=== PATIENT | male | born 1985 | race Caucasian/White ===

== ENCOUNTER 2016-08-03 20:21 | Emergency (ER) | payer OTHER, SELFPAY ==
[~2016-08-03] VITALS: Ht 177.8 cm; Wt 62.1 kg
[2016-08-03 20:22] VITALS: BP 143/75
== END 2016-08-03 21:58 | disposition left against medical advice (07) ==
LOC: M ED 21:55
DX: N50.819 Testicular pain, unspecified (principal); Z53.21 Procedure and treatment not carried out due to patient leaving prior to being seen by health care provider

== ENCOUNTER 2016-08-04 19:31 | Emergency (ER) | payer SELFPAY ==
[~2016-08-04] VITALS: Ht 175.3 cm; Wt 62.1 kg
[2016-08-04] MEDS ORDERED: NORCO, ANEXSIA 5/325MG TABLET (HYDROcodone/ACETAMINOPHEN) PO ONE (22:00)
--- NOTE | 2016-08-04 22:20 | REPUSA ---
CLINICAL HISTORY: Testicular pain, swelling. TECHNIQUE: Realtime sonographic images were obtained in multiple projections. COMMENTS: Compared to 04/22/16 study. The right testis measures 4.6 (CC) x 2.3 (AP) x 2.9 (TRV). The left testis measures 4.6 (CC) x 2.1 ( AP) x 2.9 (TRV). The head size of the right epididymis measures 6.8 mm and the head size of the left epididymis measur es 5.1 mm with a cyst, 1.6 mm. The right RI measures 0.56, PSV 5.9, and EDV of 2.6. The left RI measures 0.46, PSV 3.9, and EDV 2.1. IMPRESSION: Tiny right epididymal head cyst. Bilateral testicles normal flow. Bilateral testicles microlithiasis, no change. Thank you for your kind referral of this patient. We appreciate the opportunity to participate in th is patient's care.
[2016-08-04 23:05] VITALS: BP 122/71
== END 2016-08-04 23:12 | disposition home or self-care (01) ==
LOC: M ED 20:38
DX: N50.3 Cyst of epididymis (principal); F17.200 Nicotine dependence, unspecified, uncomplicated; Z88.2 Allergy status to sulfonamides

== ENCOUNTER → 2016-08-12 | Outpatient (CLI) | payer SELFPAY ==
--- NOTE | 2016-08-12 16:34 | REP ---
Clinical: Testicular and groin pain. Technique: Axial contrast enhanced images from the lung bases to the pubic symphysis using 100 ml Isovue 370 intravenous contrast material with precontrast images of the abdomen as well as coronal and sagittal re-formations. Comparison: 10/09/2013. Findings: Lung bases clear. Visualized heart and pericardium normal. Liver, spleen, pancreas, gallbladder, bilateral adrenal glands and kidneys are normal. The enteric system is without obstruction or acute inflammatory process. Evidence for prior appendectomy. Pelvis demonstrates normal bladder and age appropriate prostate/seminal vesicles. No ascites. No free air. No adenopathy. Vasculature is normal. Musculoskeletal structures are intact. Impression: Normal contrast enhanced CT of the abdomen and pelvis. Signed by Elia Roe MD 08/12/2016 04:26 P
== END ==
LOC: M RAD 15:47
PROVIDERS: ATTEND Nurse Practitioner Women's Health
DX: R10.30 Lower abdominal pain, unspecified (principal); N50.819 Testicular pain, unspecified

== ENCOUNTER 2016-10-03 15:00 | Emergency (ER) | payer OTHER, SELFPAY ==
[~2016-10-03] VITALS: Ht 175.3 cm; Wt 59.0 kg
[2016-10-03] MEDS ORDERED: NAPR500T2 PO ×2 (15:09→17:23)
[2016-10-03 15:56] LABS: BASO % 0.5 % (0.0-1.0); EOS # 0.1 K/mm3 (0.0-0.50); EOS % 1.5 % (0.0-3.0); LARGE UNSTAINED CELL # 0.1 K/mm3 (0.0-0.4); LYMPH # 1.7 K/mm3 (1.5-6.5); LYMPH % 28.8 % (24.0-44.0); MEAN CORPUSCULAR HEMOGLOBIN 32.4 pg (27.0-33.0); MEAN CORPUSCULAR HGB CONC 34.1 g/dl (32.0-36.5); MEAN CORPUSCULAR VOLUME 94.9 fl (80.0-96.0); MONO # 0.2 K/mm3 (0.0-0.8); MONO % 4.2 % (0.0-5.0); NEUTROPHILS # 3.7 K/mm3 (1.8-7.7); PLATELET COUNT, AUTOMATED 226 k/mm3 (150-450); RED CELL DISTRIBUTION WIDTH 11.9 % (11.5-14.5); WHITE BLOOD COUNT 5.8 K/mm3 (4.0-10.0)
[2016-10-03 16:25] LABS: ALBUMIN 4.5 GM/DL (3.2-5.2); ALBUMIN/GLOBULIN RATIO 1.67 (1.00-1.93); ALKALINE PHOSPHATASE 75 U/L (45-117); ALT/SGPT 23 U/L (12-78); ANION GAP 8 MEQ/L (8-16); AST/SGOT 14 U/L (15-37); BILIRUBIN,TOTAL 0.9 MG/DL (0.2-1.0); BLOOD UREA NITROGEN 15 MG/DL (7-18); CALCIUM LEVEL 8.9 MG/DL (8.5-10.1); CARBON DIOXIDE LEVEL 29 MEQ/L (21-32); CHLORIDE LEVEL 104 MEQ/L (98-107); CREATININE FOR GFR 0.87 MG/DL (0.70-1.30); GLOMERULAR FILTRATION RATE > 60.0 (>60); GLUCOSE, FASTING 94 MG/DL (70-105); POTASSIUM SERUM 4.9 MEQ/L (3.5-5.1); SODIUM LEVEL 141 MEQ/L (136-145); TOTAL PROTEIN 7.2 GM/DL (6.4-8.2)
[2016-10-03] MEDS ORDERED: KETOROLAC 60 MG/2 ML VIAL (J1885) IM ONE (17:00)
[2016-10-03] MEDS ORDERED: TYLE325T5 PO (17:23)
[2016-10-03] MEDS ORDERED: DOXY100C37 PO (17:25)
[2016-10-03 17:30] VITALS: BP 135/65
[2016-10-03] MEDS ORDERED: cefTRIAXone SOD 500 MG VIAL (J0696) IM ONE (17:30)
[2016-10-03] MEDS ORDERED: AZITHROMYCIN SUSP 200MG/5ML 30ML BOTTLE (FOR INPATIENT ORDERS) PO ONE (17:30)
[2016-10-03] MEDS ORDERED: AZITHROMYCIN 250 MG TAB PO ONE (17:30)
--- NOTE | 2016-10-04 07:03 | REP ---
SCROTAL ULTRASOUND: Real-time sonographic evaluation of the scrotum and contents performed. Testicles are normal in size and echotexture, right testicle somewhat smaller than the left. Right testicle measures 3.3 x 2.1 x 2.7 cm and left testicle 4.2 x 2.2 x 2.8 cm. A few tiny calcifications are seen in the testicles. There is no testicular mass or torsion, with blood flow seen in each testicle with duplex Doppler evaluation, resistive index right testicle 0.50 and left testicle 0.56. Tiny cyst is seen in the head of the right epididymis measuring 2 mm in diameter. Prominent venous structures on the left may indicate a small varicocele. IMPRESSION: No testicular mass or torsion. Signed by Earle Cardoso MD 10/04/2016 07:50 P
== END 2016-10-03 18:01 | disposition home or self-care (01) ==
LOC: M ED 15:31
DX: N45.1 Epididymitis (principal); Z88.1 Allergy status to other antibiotic agents; Z88.2 Allergy status to sulfonamides; F17.210 Nicotine dependence, cigarettes, uncomplicated
CPT/HCPCS: 36415; 76870; 80053; 85025; 86780; 87491; 87591; 93976; 96372; 99282; J0696; J1885

== ENCOUNTER → 2016-10-28 | Outpatient (CLI) | payer OTHER ==
[~2016-10-28] MED LIST: DOXY100C37 PO; IBUP-1114 PO; NAPR500T2 PO; TYLE325T5 PO
[2016-10-28 11:48] LABS: MEAN CORPUSCULAR HEMOGLOBIN 31.5 pg (27.0-33.0); MEAN CORPUSCULAR HGB CONC 34.3 g/dl (32.0-36.5); MEAN CORPUSCULAR VOLUME 91.9 fl (80.0-96.0); RED CELL DISTRIBUTION WIDTH 12.1 % (11.5-14.5); WHITE BLOOD COUNT 3.7 K/mm3 (4.0-10.0)
[2016-10-28 11:58] LABS: INR 1.09
[2016-10-28 12:28] LABS: ANION GAP 4 MEQ/L (8-16); BLOOD UREA NITROGEN 11 MG/DL (7-18); CALCIUM LEVEL 9.3 MG/DL (8.5-10.1); CARBON DIOXIDE LEVEL 31 MEQ/L (21-32); CHLORIDE LEVEL 105 MEQ/L (98-107); CREATININE FOR GFR 0.84 MG/DL (0.70-1.30); GLOMERULAR FILTRATION RATE > 60.0 (>60); GLUCOSE, FASTING 94 MG/DL (70-105); POTASSIUM SERUM 4.6 MEQ/L (3.5-5.1); SODIUM LEVEL 140 MEQ/L (136-145)
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
== END ==
LOC: M LAB 10:56
PROVIDERS: ATTEND Urology
DX: Z01.818 Encounter for other preprocedural examination (principal); N50.811 Right testicular pain

== ENCOUNTER → 2016-11-10 | Day surgery (SDC) | payer OTHER ==
[~2016-11-10] VITALS: Ht 172.7 cm; Wt 60.3 kg
[~2016-11-10] MED LIST changes: +ACETAMINOPHEN TAB 650MG DOSE (2X325MG) PO SCH; +BACITRACIN OINT 30GM As Ordered ONE; +BACITRACIN OINT 30GM TOP SCH; +BUPIVACAINE HCL 0.25% 30 ML VIAL As Ordered ONE; +CIPR500T3 PO; +CIPROFLOXACIN 500 MG TAB PO SCH; +LIDOCAINE 2% INJ 100 MG/5 ML SDV (FOR ANES.) As Ordered ONE; +LR 1,000 ML IV ONE; +LR 1,000 ML IV SCH; +METOCLOPRAMIDE INJ 10MG/2ML VIAL (J2765) IV PRN; +MIDAZOLAM INJ 2 MG/2 ML VIAL (J2250) As Ordered ONE; +ONDANSETRON 4MG/2ML VIAL (J2405) IV PRN; +PERCOCET 5MG/325MG TAB As Ordered ONE; +PROPOFOL 200 MG/20 ML VIAL As Ordered ONE; +TYLE650T35 PO; +fentaNYL 100 MCG/2 ML INJECTION (J3010) As Ordered ONE
[2016-11-10] MEDS: fentaNYL 100 MCG/2 ML INJECTION (J3010) IV PRN ×4 (12:59→13:14)
[2016-11-10] MEDS: PERCOCET 5MG/325MG TAB PO PRN ×2 (13:34→16:16)
[2016-11-10 17:45] VITALS: BP 132/82
--- NOTE | 2016-11-12 06:18 | RO ---
DATE OF PROCEDURE: 11/10/2016 PREOPERATIVE DIAGNOSIS: Condyloma acuminatum of the base of the penile shaft. POSTOPERATIVE DIAGNOSIS: Condyloma acuminatum of the base of the penile shaft. FINDINGS: 5 cm condyloma acuminatum of the penile shaft and the genitalia multiple. PROCEDURE: CO2 laser ablation condyloma of the genitalia. SURGEON: Dr. Arnoldo Morales. CONCRETE FENCE BUILDER: None. ANESTHESIA: General. COMPLICATIONS: None. ESTIMATED BLOOD LOSS: N/A. HISTORY OF PRESENT ILLNESS: This is a 31-year-old male patient with multiple condyloma acuminatum in the pubic area and also in the base of the penis. For this reason, he has consented for CO2 laser ablation of condylomas of the genitalia. PROCEDURE DESCRIPTION: With patient under general anesthesia in supine position, after prepping and draping the area of concern which included the entire genitalia, we started by doing a biopsy of one of the condylomas and sent it for permanent pathology analysis. With electro Bovie cautery, we took it out from the pedicle. We then proceeded to do a CO2 laser ablation a power of 5 and then a power of 10 of all the condylomas in the suprapubic area and also in the base of the penis. We then proceeded to apply bacitracin cream and floss and a mesh panty to hold the gauze. PLAN: The patient will go home with antibiotic and pain medication. Followup at [facility] in about 2 weeks. There were no complications during surgery.
== END | disposition home or self-care (01) ==
LOC: M SDC 09:39
PROVIDERS: ATTEND Urology
DX: A63.0 Anogenital (venereal) warts (principal); N50.811 Right testicular pain; M54.2 Cervicalgia; M54.6 Pain in thoracic spine; M54.5 Low back pain; G89.29 Other chronic pain; M25.511 Pain in right shoulder; F17.210 Nicotine dependence, cigarettes, uncomplicated; Z88.2 Allergy status to sulfonamides

== ENCOUNTER 2017-01-17 16:53 | Emergency (ER) | payer MEDICAID, OTHER, SELFPAY ==
[~2017-01-17] VITALS: Ht 172.7 cm; Wt 57.5 kg
[~2017-01-17 16:53] MED LIST changes: -ACETAMINOPHEN TAB 650MG DOSE (2X325MG) PO SCH; -BACITRACIN OINT 30GM As Ordered ONE; -BACITRACIN OINT 30GM TOP SCH; -BUPIVACAINE HCL 0.25% 30 ML VIAL As Ordered ONE; -CIPROFLOXACIN 500 MG TAB PO SCH; -LIDOCAINE 2% INJ 100 MG/5 ML SDV (FOR ANES.) As Ordered ONE; -LR 1,000 ML IV ONE; -LR 1,000 ML IV SCH; -METOCLOPRAMIDE INJ 10MG/2ML VIAL (J2765) IV PRN; -MIDAZOLAM INJ 2 MG/2 ML VIAL (J2250) As Ordered ONE; -NAPR500T2 PO; +NAPR500T3 PO; -ONDANSETRON 4MG/2ML VIAL (J2405) IV PRN; -PERCOCET 5MG/325MG TAB As Ordered ONE; -PROPOFOL 200 MG/20 ML VIAL As Ordered ONE; -fentaNYL 100 MCG/2 ML INJECTION (J3010) As Ordered ONE
[2017-01-17] MEDS ORDERED: KETOROLAC 60 MG/2 ML VIAL (J1885) IM ONE (18:30)
[2017-01-17] MEDS ORDERED: NAPR500T PO (19:37)
[2017-01-17] MEDS ORDERED: CYCL10TA PO (19:37)
[2017-01-17 19:41] VITALS: BP 107/63
--- NOTE | 2017-01-18 09:20 | REP ---
LUMBAR SPINE, FIVE VIEWS: HISTORY: Trauma. COMPARISON: 03/08/2016. There is no acute fracture. The L4-5 and L5-S1 intervertebral discs are decreased in height consistent with disc degeneration. The facet joints are normal in appearance. There is loss of the normal lordotic curve. IMPRESSION: Degenerative change as described above. Signed by Javi French MD 01/18/2017 09:29 A
--- NOTE | 2017-01-18 09:23 | REP ---
RIGHT HIP, TWO VIEWS: HISTORY: Pain. There is no acute fracture or dislocation. The joint space is normal in appearance. IMPRESSION: There is no acute fracture or dislocation. Signed by Javi French MD 01/18/2017 09:29 A
== END 2017-01-17 19:50 | disposition home or self-care (01) ==
LOC: M ED 16:53
DX: S30.0XXA Contusion of lower back and pelvis, initial encounter (principal); W01.0XXA Fall on same level from slipping, tripping and stumbling without subsequent striking against object, initial encounter; Y92.89 Other specified places as the place of occurrence of the external cause; Y93.89 Activity, other specified; Y99.8 Other external cause status; Z88.1 Allergy status to other antibiotic agents; Z88.2 Allergy status to sulfonamides; F17.210 Nicotine dependence, cigarettes, uncomplicated
CPT/HCPCS: 72110; 73502; 96372; 99282; J1885; J3360

== ENCOUNTER → 2017-06-01 | Outpatient (REF) | payer OTHER ==
[2017-06-01 19:27] LABS: APPEARANCE, URINE CLEAR (CLEAR); BACTERIA, URINE AUTO NEGATIVE (NEGATIVE); BILIRUBIN, URINE AUTO NEGATIVE (NEGATIVE); BLOOD, URINE BLOOD NEGATIVE (NEGATIVE); COLOR, URINE YELLOW (YELLOW); GLUCOSE, URINE (UA) AUTO NEGATIVE (NEGATIVE); KETONE, URINE AUTO NEGATIVE (NEGATIVE); LEUKOCYTE ESTERASE, URINE AUTO NEGATIVE (NEGATIVE); NITRITE, URINE AUTO NEGATIVE (NEGATIVE); PROTEIN, URINE AUTO NEGATIVE (NEGATIVE); RBC, URINE AUTO 0 /HPF (0-3); SQUAMOUS EPITHELIAL CELL UR AU 0 /HPF (0-6); UROBILINOGEN, URINE AUTO 0.2 mg/dL (0.0-2.0); WBC, URINE AUTO 0 /HPF (0-3)
== END ==
LOC: M SMT 17:46
DX: N50.811 Right testicular pain (principal)

== ENCOUNTER 2017-10-04 08:52 | Emergency (ER) | payer OTHER ==
[2017-10-04] MEDS: AUGMENTIN 875 MG TAB PO (09:50)
== END 2017-10-04 09:53 | disposition home or self-care (01) ==
LOC: M ED 08:52
DX: S81.831A Puncture wound without foreign body, right lower leg, initial encounter (principal); W54.0XXA Bitten by dog, initial encounter; Y92.9 Unspecified place or not applicable; Y93.9 Activity, unspecified; Y99.9 Unspecified external cause status; F17.200 Nicotine dependence, unspecified, uncomplicated; Z88.2 Allergy status to sulfonamides
CPT/HCPCS: 99283

== ENCOUNTER 2017-11-20 23:24 | Emergency (ER) | payer OTHER | END 2017-11-21 01:41 | disposition left against medical advice (07) | LOC: M ED 23:24 | DX: R05 Cough (principal); Z88.2 Allergy status to sulfonamides; Z53.21 Procedure and treatment not carried out due to patient leaving prior to being seen by health care provider ==

== ENCOUNTER → 2017-11-24 | Outpatient (CLI) | payer OTHER ==
[2017-11-24 13:00] LABS: BASO % 0.7 % (0.0-1.0); EOS # 0.1 10^3/uL (0.0-0.50); EOS % 1.9 % (0.0-3.0); HEMATOCRIT 43.2 % (42.0-52.0); IMMATURE GRANULOCYTE % 0.4 % (0-3.0); LYMPH # 1.8 10^3/uL (1.5-4.5); LYMPH % 33.9 % (24.0-44.0); MEAN CORPUSCULAR HEMOGLOBIN 31.4 pg (27.0-33.0); MEAN CORPUSCULAR HGB CONC 34.7 g/dl (32.0-36.5); MEAN CORPUSCULAR VOLUME 90.6 fl (80.0-96.0); MONO # 0.4 10^3/uL (0.0-0.8); MONO % 7.9 % (0.0-5.0); NEUTROPHILS % 55.2 % (36.0-66.0); PLATELET COUNT, AUTOMATED 282 10^3/uL (150-450); RED BLOOD COUNT 4.77 10^6/uL (4.30-6.10); RED CELL DISTRIBUTION WIDTH 11.8 % (11.5-14.5); WHITE BLOOD COUNT 5.3 10^3/uL (4.0-10.0)
[2017-11-24 14:04] LABS: HEPATITIS C VIRUS ABY INDEX 0.1 INDEX (<0.8); HIV 1&2 SCREEN CENTAUR NEGATIVE (NEGATIVE)
[2017-11-24 16:43] LABS: ALBUMIN 4.1 GM/DL (3.2-5.2); ALBUMIN/GLOBULIN RATIO 1.41 (1.00-1.93); ALKALINE PHOSPHATASE 75 U/L (45-117); ALT/SGPT 22 U/L (12-78); ANION GAP 8 MEQ/L (8-16); AST/SGOT 15 U/L (7-37); BILIRUBIN,TOTAL 0.9 MG/DL (0.2-1.0); BLOOD UREA NITROGEN 17 MG/DL (7-18); CALCIUM LEVEL 8.9 MG/DL (8.5-10.1); CARBON DIOXIDE LEVEL 28 MEQ/L (21-32); CHLORIDE LEVEL 106 MEQ/L (98-107); CREATININE FOR GFR 0.81 MG/DL (0.70-1.30); GLOMERULAR FILTRATION RATE > 60.0 (>60); GLUCOSE, FASTING 103 MG/DL (70-100); POTASSIUM SERUM 4.5 MEQ/L (3.5-5.1); SODIUM LEVEL 142 MEQ/L (136-145)
[2017-11-26 14:18] LABS: QUANTIFERON GOLD TB Negative (Negative); TB Test (QFT) Antigen 0.09 IU/mL (.); TB Test (QFT) Antigen Minus Ni 0.01 IU/mL (.); TB Test (QFT) Mitogen 8.52 IU/mL (.); TB Test (QFT) Nil 0.08 IU/mL (.)
== END ==
LOC: M LAB 12:14
DX: R06.02 Shortness of breath (principal); R05 Cough
CPT/HCPCS: 71046

== ENCOUNTER 2018-12-29 00:27 | Emergency (ER) | payer OTHER ==
[~2018-12-29] VITALS: Ht 175.3 cm; Wt 59.1 kg
[~2018-12-29 00:27] MED LIST changes: +AUGM875T28 PO; +CYCL10TA PO; +NAPR-837 PO; +NAPR-885 PO; -NAPR500T3 PO; +ROBI1LIQ PO
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
[2018-12-29] MEDS ORDERED: NS 1,000 ML IV ONE (01:00)
[2018-12-29] MEDS ORDERED: METOCLOPRAMIDE INJ 10MG/2ML VIAL (J2765) IV ONE (01:00)
[2018-12-29 01:21] LABS: BASO # 0.1 10^3/uL (0.0-0.2); BASO % 0.7 % (0.0-1.0); EOS # 0.2 10^3/uL (0.0-0.50); EOS % 2.7 % (0.0-3.0); HEMATOCRIT 42.4 % (42.0-52.0); HEMOGLOBIN 14.5 g/dl (13.5-17.5); LYMPH # 2.9 10^3/uL (1.5-4.5); LYMPH % 40.7 % (24.0-44.0); MEAN CORPUSCULAR HEMOGLOBIN 31.7 pg (27.0-33.0); MEAN CORPUSCULAR HGB CONC 34.2 g/dl (32.0-36.5); MEAN CORPUSCULAR VOLUME 92.6 fl (80.0-96.0); MONO # 0.5 10^3/uL (0.0-0.8); MONO % 6.8 % (0.0-5.0); NEUTROPHILS # 3.5 10^3/uL (1.8-7.7); NEUTROPHILS % 48.8 % (36.0-66.0); PLATELET COUNT, AUTOMATED 233 10^3/uL (150-450); RED BLOOD COUNT 4.58 10^6/uL (4.30-6.10); WHITE BLOOD COUNT 7.1 10^3/uL (4.0-10.0)
[2018-12-29 01:58] LABS: BLOOD UREA NITROGEN 15 MG/DL (7-18); CALCIUM LEVEL 9.4 MG/DL (8.5-10.1); CARBON DIOXIDE LEVEL 29 MEQ/L (21-32); CHLORIDE LEVEL 109 MEQ/L (98-107); GLOMERULAR FILTRATION RATE > 60.0 (>60); GLUCOSE, FASTING 103 MG/DL (70-100); POTASSIUM SERUM 4.1 MEQ/L (3.5-5.1); SODIUM LEVEL 142 MEQ/L (136-145)
[2018-12-29 03:06] VITALS: BP 118/75
== END 2018-12-29 02:56 | disposition home or self-care (01) ==
LOC: M ED 00:27
DX: S09.90XA Unspecified injury of head, initial encounter (principal); W20.8XXA Other cause of strike by thrown, projected or falling object, initial encounter; Y92.89 Other specified places as the place of occurrence of the external cause; Y99.0 Civilian activity done for income or pay; Y93.H9 Activity, other involving exterior property and land maintenance, building and construction; R11.0 Nausea; F17.200 Nicotine dependence, unspecified, uncomplicated; Z88.2 Allergy status to sulfonamides
CPT/HCPCS: 70450; 72125; 80048; 85025; 96374; 99284; J2765

== ENCOUNTER 2019-03-27 12:36 | Day surgery (SDC) | payer OTHER ==
[~2019-03-27] VITALS: Ht 172.7 cm; Wt 55.2 kg
[~2019-03-27 12:36] MED LIST changes: +ACET-840 PO; +IBUP1TAB6 PO; +LR 1,000 ML IV ONE; +ceFAZolin SOD 2 GM in IV 1 EA IV ONE
[2019-03-27] MEDS ORDERED: fentaNYL 250 MCG/5 ML INJECTION (J3010) As Ordered ONE (13:26)
[2019-03-27] MEDS ORDERED: MIDAZOLAM INJ 2 MG/2 ML VIAL (J2250) As Ordered ONE (13:26)
[2019-03-27] MEDS ORDERED: ONDANSETRON 4MG/2ML VIAL (J2405) As Ordered ONE (13:27)
[2019-03-27] MEDS ORDERED: PROPOFOL 200 MG/20 ML VIAL As Ordered ONE (13:27)
[2019-03-27] MEDS ORDERED: LIDOCAINE 2% INJ 100 MG/5 ML SDV (FOR ANES.) As Ordered ONE (13:27)
[2019-03-27] MEDS ORDERED: dexameTHASONE 4 MG/ML 1ML VIAL (J1100) As Ordered ONE (13:27)
[2019-03-27] MEDS ORDERED: ROCURONIUM BROMIDE 50 MG/5 ML VIAL As Ordered ONE (13:28)
[2019-03-27] MEDS ORDERED: BUPIVACAINE/EPIN 0.25% 30 ML VIAL As Ordered ONE (13:55)
[2019-03-27] MEDS ORDERED: LACRILUBE (AKWA TEARS) OPHTH OINT 3.5 GM As Ordered ONE (14:10)
[2019-03-27] MEDS ORDERED: KETOROLAC 60 MG/2 ML VIAL (J1885) As Ordered ONE (14:43)
--- NOTE | 2019-03-27 15:09 | RO ---
DATE OF PROCEDURE: 03/27/2019 PREOPERATIVE DIAGNOSIS: Right inguinal hernia. POSTOPERATIVE DIAGNOSIS: Right inguinal hernia. PROCEDURE: Robotic repair of right inguinal hernia. SURGEON: Dr. Earle Sam ENVELOPE PRESS OPERATOR: Cora Webster NP ANESTHESIA: General. ESTIMATED BLOOD LOSS: 5 mL. COMPLICATIONS: None. INDICATIONS FOR PROCEDURE: The patient 33-year-old male who presents right inguinal pain and found to have a right inguinal hernia. Recommendation was to proceed with robotic repair of the right inguinal hernia. Risks and benefits of the procedure not limited but including bleeding, infection, hernia formation, hernia recurrence, damage to surrounding structures, need for further surgery were discussed in detail with the patient and informed consent was obtained. The procedure was planned. DESCRIPTION OF PROCEDURE: The patient brought back to operating room 7. After sufficient sedation, the abdomen was sterilely prepped and draped. Next, time-out was done to confirm proper patient and proper procedure. Following that, an 8 mm incision was made in the left lower quadrant, Veress needle was inserted and the abdomen was insufflated to 50 mmHg. The Veress needle was removed and 8 mm robotic port was used to gain access to the abdomen. Once the abdomen was entered, another 8 mm port was placed in the mid abdomen superior to umbilicus and another 8 mm port in the right midabdomen. Next, the robot was connected to the ports from the console to the groin was identified. The peritoneum overlying the right inguinal canal was incised with a curved incision. The preperitoneal space was dissected free posteriorly and then medially and laterally. Once the cord structures were completely dissected free from the hernia sac, I reduced them to make sure there was no other cord lipoma. There was very small lipoma identified that was gently reduced but no other signs of anything causing obstruction or pain. The Bard 3-D Max light medium mesh was then placed into the preperitoneal space, sutured to the pubic symphysis using a 2-0 Vicryl suture. The mesh was laid flat inside the pocket. The peritoneum was then closed over top of the mesh using 2-0 V-Loc suture. Once this was completed, the abdomen was desufflated. Skin incisions closed 4-0 Vicryl subcuticular sutures. The abdomen was cleaned and dried. Steri-Strips, 4x4 and tape were applied, thus ending procedure.
[2019-03-27] MEDS ORDERED: LR 1,000 ML IV SCH (15:30)
[2019-03-27] MEDS: fentaNYL 100 MCG/2 ML INJECTION (J3010) IV PRN ×4 (15:30→15:54)
[2019-03-27] MEDS ORDERED: NORCO, ANEXSIA 5/325MG TABLET (HYDROcodone/ACETAMINOPHEN) PO PRN (15:30)
[2019-03-27] MEDS ORDERED: ONDANSETRON 4MG/2ML VIAL (J2405) IV PRN (15:30)
[2019-03-27] MEDS: PERCOCET 5MG/325MG TAB PO PRN ×2 (15:56→17:05)
[2019-03-27] MEDS ORDERED: PERCOCET 5MG/325MG TAB As Ordered ONE (16:59)
[2019-03-27 18:00] VITALS: BP 126/68
== END 2019-03-27 18:05 | disposition home or self-care (01) ==
LOC: M SDC 12:36
PROVIDERS: ATTEND Surgery
DX: K40.90 Unilateral inguinal hernia, without obstruction or gangrene, not specified as recurrent (principal); F41.9 Anxiety disorder, unspecified; F17.210 Nicotine dependence, cigarettes, uncomplicated; Z88.2 Allergy status to sulfonamides
CPT/HCPCS: 49650; C1781; J0690; J1100; J1885; J2250; J2405; J3010

== ENCOUNTER → 2019-03-31 | Outpatient (CLI) | payer OTHER ==
[~2019-03-31] MED LIST changes: -LR 1,000 ML IV ONE; -ceFAZolin SOD 2 GM in IV 1 EA IV ONE
--- NOTE | 2019-03-31 12:13 | REP ---
SOFT-TISSUE INGUINAL ULTRASOUND: HISTORY: Right lower quadrant pain. Status post right inguinal hernia repair with mesh placement March 27, 2019. FINDINGS: Right inguinal soft tissue sonography visualizes the herniorrhaphy mesh. This is at the internal inguinal ring. There is no evidence of recurrent hernia, abnormal fluid collection, or mass. The left inguinal canal is scanned for comparison purposes and is unremarkable. IMPRESSION: No hernia, cyst or mass lesion seen. Electronically Signed by Chang Rice MD 03/31/2019 01:54 P
== END ==
LOC: M RAD 11:17
PROVIDERS: ATTEND Nurse Practitioner
DX: R10.32 Left lower quadrant pain (principal); K40.90 Unilateral inguinal hernia, without obstruction or gangrene, not specified as recurrent

== ENCOUNTER 2019-11-01 17:51 | Emergency (ER) | payer OTHER ==
[~2019-11-01] VITALS: Ht 172.7 cm; Wt 57.7 kg
[~2019-11-01 17:51] MED LIST changes: +CYCL-707 PO; -CYCL10TA PO
[2019-11-01] MEDS ORDERED: NS 1,000 ML IV ONE (18:15)
[2019-11-01 18:27] LABS: BASO % 0.5 % (0.0-1.0); EOS # 0.1 10^3/uL (0.0-0.5); EOS % 1.3 % (0.0-3.0); HEMOGLOBIN 14.1 g/dl (13.5-17.5); LYMPH # 2.7 10^3/uL (1.5-5.0); LYMPH % 35.5 % (24.0-44.0); MEAN CORPUSCULAR HEMOGLOBIN 31.4 pg (27.0-33.0); MEAN CORPUSCULAR HGB CONC 34.4 g/dl (32.0-36.5); MEAN CORPUSCULAR VOLUME 91.3 fl (80.0-96.0); MONO # 0.5 10^3/uL (0.0-0.8); MONO % 6.9 % (0.0-5.0); NEUTROPHILS # 4.2 10^3/uL (1.5-8.5); NEUTROPHILS % 55.5 % (36.0-66.0); PLATELET COUNT, AUTOMATED 257 10^3/uL (150-450); RED BLOOD COUNT 4.49 10^6/uL (4.30-6.10); WHITE BLOOD COUNT 7.5 10^3/uL (4.0-10.0)
[2019-11-01 18:52] LABS: ALBUMIN 4.3 GM/DL (3.2-5.2); ALT/SGPT 19 U/L (12-78); BILIRUBIN,DIRECT 0.3 MG/DL (0.0-0.2); BILIRUBIN,TOTAL 1.3 MG/DL (0.2-1.0); BLOOD UREA NITROGEN 11 MG/DL (7-18); CALCIUM LEVEL 9.4 MG/DL (8.5-10.1); CARBON DIOXIDE LEVEL 27 MEQ/L (21-32); CHLORIDE LEVEL 104 MEQ/L (98-107); CK-MB VALUE MASS 2.4 NG/ML (<3.6); CPK CREATINE PHOSPHOKINASE 180 U/L (39-308); CREATININE FOR GFR 0.72 MG/DL (0.70-1.30); GLOMERULAR FILTRATION RATE > 60.0 (>60); GLUCOSE, FASTING 97 MG/DL (70-100); LIPASE 68 U/L (73-393); MB/CK RELATIVE INDEX 1.33 (< OR =4); SODIUM LEVEL 138 MEQ/L (136-145); TOTAL PROTEIN 6.8 GM/DL (6.4-8.2); TROPONIN I < 0.02 NG/ML (< 0.10)
[2019-11-01] MEDS ORDERED: BUPREN/NALOX (18:54)
[2019-11-01 19:30] VITALS: BP 125/76
[2019-11-01] MEDS ORDERED: ONDA4TAB6 PO (19:42)
--- NOTE | 2019-11-02 21:26 | ECGEPIP ---
[facility] - ED Test Date: 2019-11-01 Pat Name: FRANCESCO FONTANEZ Department: Room: - Gender: Male Lead Principal Technical Architect: ef : 1985 Requested By: ROMELIA BLACK Order Number: [id number] Reading MD: Denis Peacock Measurements Intervals Melvin Rate: 58 P: 61 NJ: 153 QRS: 85 QRSD: 93 T: 68 QT: 402 QTc: 396 Interpretive Statements SINUS BRADYCARDIA INCOMPLETE RIGHT BUNDLE BRANCH BLOCK SIMILAR TO 09/24/14 Electronically Signed on 11-02-2019 21:26:30 EDT by Denis Peacock
== END 2019-11-01 19:50 | disposition home or self-care (01) ==
LOC: EDBD 17:51 → M ED 17:51
DX: R11.2 Nausea with vomiting, unspecified (principal); X32.XXXA Exposure to sunlight, initial encounter; Y92.9 Unspecified place or not applicable; Y93.9 Activity, unspecified; Y99.9 Unspecified external cause status; R00.1 Bradycardia, unspecified; I45.19 Other right bundle-branch block; F19.10 Other psychoactive substance abuse, uncomplicated; F41.9 Anxiety disorder, unspecified; M54.9 Dorsalgia, unspecified; F17.200 Nicotine dependence, unspecified, uncomplicated; Z79.899 Other long term (current) drug therapy; Z88.2 Allergy status to sulfonamides

== ENCOUNTER 2020-03-25 13:52 | Inpatient (IN) | payer MEDICAID, OTHER ==
[~2020-03-25] VITALS: Ht 170.2 cm; Wt 53.0 kg
[~2020-03-25 13:52] MED LIST changes: +ACET650T61 PO; +BUPREN/NALOX; +ONDA4TAB6 PO; -TYLE650T35 PO
[2020-03-25 14:41] LABS: HEMATOCRIT 44.2 % (42.0-52.0); HEMOGLOBIN 14.7 g/dl (13.5-17.5); MEAN CORPUSCULAR HEMOGLOBIN 30.7 pg (27.0-33.0); MEAN CORPUSCULAR HGB CONC 33.3 g/dl (32.0-36.5); MEAN CORPUSCULAR VOLUME 92.3 fl (80.0-96.0); PLATELET COUNT, AUTOMATED 263 10^3/uL (150-450); RED BLOOD COUNT 4.79 10^6/uL (4.30-6.10); WHITE BLOOD COUNT 8.7 10^3/uL (4.0-10.0)
[2020-03-25 15:41] LABS: ACETAMINOPHEN LEVEL < 2.0 UG/ML (10.0-30.0); ALBUMIN 4.6 GM/DL (3.2-5.2); ALT/SGPT 14 U/L (12-78); BILIRUBIN,DIRECT 0.2 MG/DL (0.0-0.2); BILIRUBIN,TOTAL 0.9 MG/DL (0.2-1.0); BLOOD UREA NITROGEN 9 MG/DL (7-18); CALCIUM LEVEL 9.7 MG/DL (8.5-10.1); CARBON DIOXIDE LEVEL 30 MEQ/L (21-32); CHLORIDE LEVEL 104 MEQ/L (98-107); CREATININE FOR GFR 0.78 MG/DL (0.70-1.30); ETHYL ALCOHOL (ETHANOL) < 0.003 % (0.000-0.010); GLOMERULAR FILTRATION RATE > 60.0 (>60); GLUCOSE, FASTING 96 MG/DL (70-100); POTASSIUM SERUM 3.8 MEQ/L (3.5-5.1); SALICYLATE LEVEL 1.8 MG/DL (5.0-30.0); SODIUM LEVEL 140 MEQ/L (136-145); TOTAL PROTEIN 7.4 GM/DL (6.4-8.2)
[2020-03-25 15:43] LABS: AMPHETAMINES LEVEL URINE NEGATIVE (NEGATIVE); BARBITURATES URINE NEGATIVE (NEGATIVE); BENZODIAZEPINES URINE NEGATIVE (NEGATIVE); CANNABINOIDS URINE NEGATIVE (NEGATIVE); COCAINE METABOLITE URINE NEGATIVE (NEGATIVE); METHADONE URINE NEGATIVE (NEGATIVE); OPIATES URINE NEGATIVE (NEGATIVE); PHENCYCLIDINE URINE NEGATIVE (NEGATIVE)
[2020-03-25] MEDS ORDERED: BUPR2SUB PO (15:44)
[2020-03-25] MEDS ORDERED: OLANZapine ORAL DISINTEGRATING TAB 5MG PO PRN (19:15)
[2020-03-25] MEDS ORDERED: ACETAMINOPHEN TAB 650MG DOSE (2X325MG) PO PRN (19:15)
[2020-03-25] MEDS ORDERED: MOM 30ML SUSPENSION UDC PO PRN (19:15)
[2020-03-25] MEDS ORDERED: MAALOX 30 ML SUSP *UDC PO PRN (19:15)
[2020-03-25] MEDS ORDERED: traZODone 50 MG TAB PO PRN (19:15)
[2020-03-26] MEDS: BUPRENORPHINE/NALOXONE 2-0.5MG SUBLINGUAL TABLET(SUBOXONE) SL SCH ×3 (01:46→17:02)
[2020-03-26 03:57] VITALS: BP 131/80
[2020-03-26 06:47] VITALS: BP 131/80
[2020-03-26] MEDS: NICOTINE 21MG/24HR 1 EA TRANSDERMAL TD SCH (08:38)
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
--- NOTE | 2020-03-26 15:47 | HPEPDOC ---
General Date of Admission Mar 25, 2020 at 19:02 Date of Service: Mar 26, 2020 Chief Complaint The patient is a 34-year-old male admitted with a reason for visit of Unspecified Depressive Disorder. Source: Patient Timing/Duration: 24 hours Severity: Moderate History of Present Illness Patient is 34 years old male with past medical history of polysubstance abuse presented to the hospital with suicidal ideation. Patient stated that after arguing with his he decided to hang himself, his called the police and police brought him to the hospital. During my interview patient denied any suicidal ideation or plan, he denied fever, chills, nausea, vomiting, diarrhea or dysuria. Patient stated that recently he had inguinal hernia repair on the right side, and sometimes he feels discomfort. Home Medications Scheduled Buprenorphine HCl (Buprenorphine HCl) 2 Mg Tab.subl, 3 MG PO BID, (Reported) Allergies Coded Allergies: Sulfa (Sulfonamide Antibiotics) (Verified Allergy, Unknown, 03/27/19) Past Medical History Medical History Polysubstance abuse Surgical History Inguinal hernia repair on the right side Family History Mother had depression, bipolar and anxiety Social History * Smoker: current smoker Alcohol: Denies Drugs: marijuana, other (smoked crack in the past) A-FIB/CHADSVASC A-FIB History Current/History of A-Fib/PAF?: No Current PO Anticoag Therapy: No Review of Systems Constitutional: Denies: Chills, Fever Eyes: Denies: Pain ENT: Denies: Head Aches, Ear Pain Skin: Denies: Rash Pulmonary: Denies: Dyspnea, Cough Cardiovascular: Denies: Chest Pain Gastrointestinal: Denies: Nausea, Vomiting Genitourinary: Denies: Dysuria Hematologic: Denies: Bruising, Bleeding Excessively Endocrine: Denies: Polydipsia Musculoskeletal: Denies: Neck Pain Neurological: Denies: Weakness Psych: Reports: Anxiety; Denies: Depression Physical Examination General Exam: Positive: Alert, Cooperative Eye Exam: Positive: PERRLA ENT Exam: Positive: Atraumatic Neck Exam: Positive: Supple; Negative: JVD Chest Exam: Positive: Clear to auscultation Heart Exam: Positive: Rate Normal Telemetry: Positive: No significant arrhythmia Abdomen Exam: Positive: Normal bowel sounds Extremity Exam: Negative: Clubbing, Cyanosis Skin Exam: Positive: Nl turgor and temperature Neuro Exam: Positive: Normal Gait Psych Exam: Positive: Oriented x 3 Vital Signs Vital Signs Date Time Temp Pulse Resp B/P (MAP) Pulse Ox O2 Delivery O2 Flow Rate FiO2 03/26/20 06:47 97.4 66 16 131/80 (97) 99 Room Air Assessment/Plan Patient is 34 years old male with past medical history of polysubstance abuse presented to the hospital with suicidal ideation. Patient stated that after arguing with his he decided to hang himself, his called the police and police brought him to the hospital. During my interview patient denied any suicidal ideation or plan, he denied fever, chills, nausea, vomiting, diarrhea or dysuria. Patient stated that recently he had inguinal hernia repair on the right side, and sometimes he feels discomfort. Problems (1) Depressive disorder, not elsewhere classified Status: Acute Problem Text: Defer treatment to psych team (2) Testicular pain, right Status: Chronic Problem Text: Recommended surgical evaluation Plan / VTE VTE Prophylaxis Ordered?: No VTE Exclusion Mechanical Proph: Low Risk for VTE KILO BEE DO Mar 26, 2020 15:47
[2020-03-26 17:52] VITALS: BP 135/65
[2020-03-27 06:51] VITALS: BP 110/59
[2020-03-27] MEDS: NICOTINE 21MG/24HR 1 EA TRANSDERMAL TD SCH (09:00)
[2020-03-27] MEDS: BUPRENORPHINE/NALOXONE 2-0.5MG SUBLINGUAL TABLET(SUBOXONE) SL SCH (09:45)
--- NOTE | 2020-03-27 10:40 | MHDSPDOC ---
[facility] Discharge Summary Discharge Summary DATE OF ADMISSION: Mar 25, 2020 at 19:02 DATE OF DISCHARGE: DISCHARGE DIAGNOSES: 1. . 2. . REASON FOR ADMISSION: CONSULTANTS INVOLVED: TREATMENT AND PROGRESS ON THE UNIT : . HOSPITAL COURSE: DISCHARGE ASSESSMENT: MENTAL STATUS EXAMINATION ON DISCHARGE: Patient is a -year old male, who is . Speech is . Language skills are . Thought processes including: . Thought content: . Abstract reasoning, and computation: . Description of associations: . Description of abnormal or psychotic thoughts: . Judgment: . Insight: . Orientation to . Recent and remote memory: . Attention span and concentration: . Language: . Fund of knowledge: . Mood: . Affect: . MEDICATIONS ON DISCHARGE: - for . - for . - for . PLAN/FOLLOWUP ARRANGEMENTS: . The amount of time spent in the coordination of care for this patient was approximately minutes. Vital Signs/I&Os Vital Signs Date Time Temp Pulse Resp B/P (MAP) Pulse Ox O2 Delivery O2 Flow Rate FiO2 03/27/20 06:51 97.1 63 16 110/59 (76) 97 Room Air Medications Scheduled Buprenorphine HCl (Buprenorphine HCl) 2 Mg Tab.subl, 3 MG PO BID, (Reported) Allergies Coded Allergies: Sulfa (Sulfonamide Antibiotics) (Verified Allergy, Unknown, 03/27/19) HANK OTT DO Mar 27, 2020 10:40
[2020-03-27] MEDS ORDERED: NICO21PAT TD (10:58)
== END 2020-03-27 12:18 | disposition home or self-care (01) | DRG 755 ==
LOC: M ED 13:52 → M PSY 19:02 → M ED INP 20:55 → M PSY 03-26 02:51
PROVIDERS: ADMIT Psychiatry & Neurology Addiction Medicine; ATTEND Psychiatry & Neurology Addiction Medicine
DX: F43.25 Adjustment disorder with mixed disturbance of emotions and conduct (principal); R45.851 Suicidal ideations; Z88.2 Allergy status to sulfonamides; Z79.899 Other long term (current) drug therapy; F17.200 Nicotine dependence, unspecified, uncomplicated; N50.811 Right testicular pain

== ENCOUNTER 2020-12-31 14:25 | Emergency (ER) | payer OTHER ==
[~2020-12-31] VITALS: Ht 175.3 cm; Wt 56.5 kg
[~2020-12-31 14:25] MED LIST changes: +BUPR2SUB PO; -DOXY100C37 PO; +DOXY1CAP62 PO; +NICO21PAT TD
[2020-12-31 14:26] VITALS: BP 123/67
== END 2020-12-31 20:53 | disposition left against medical advice (07) ==
LOC: M ED 14:25
DX: Z53.29 Procedure and treatment not carried out because of patient's decision for other reasons (principal)

== ENCOUNTER 2021-04-28 08:51 | Emergency (ER) | payer OTHER ==
[~2021-04-28] VITALS: Ht 175.3 cm; Wt 63.6 kg
[~2021-04-28 08:51] MED LIST changes: +DOXY-443 PO; -DOXY1CAP62 PO
--- OUTSIDE RECORDS SUMMARY | 2021-04-28 08:58 | CCD ---
Author Author [facility] Organization [facility] Address Unknown Phone Unavailable Support Name Relationship Address Phone SELF Next Of Kin Unknown Unavailable Jarred Umaña Next Of Kin Unknown Unavailable Bettye Vicente Next Of Kin [address] [place] [address] SELF EMPLOYED Next Of Kin [address] [place] [address] JARRED UMAÑA Next Of Kin [address] [place] [address] MARIZA UMAÑA Next [place] [address] [employer] Next Of Kin [address] [place] [address] ARMIN UMAÑA Next [place] ? [place] [address] N [address] [employer] Next Of Kin [address] [place] [address] NNG [employer]ERTY [employer]NAG[employer] Next Of Kin [address] [place] [address] NNC PROPERTY MANAGEMENT [place] [address] Unavailable CHELSEY FONTANEZ Next Of Kin [address] [place] [address] BHUMIKA MENDIETA Next Of Kin [address] [place] [address] JERMAN EDGAR Next Of Kin [address] [facility] [address] [place] [address] WARNER THORPE Next Of Kin [address] [place] [address] ST Next Of Kin Unknown Unavailable LOU ALBARADO Next Of Kin [address] [facility] [address] [place] [address] JARRED ALBARADO Next Of Kin [address] [facility] [address] [place] [address] ANALY ECHAVARRIA Next Of Kin [address] [place] [address] UE Next Of Kin Unknown Unavailable [place] [address] UN Next Of Kin Unknown Unavailable JARRED MOORE Next Of Kin [address] [place] [address] Re-disclosure Warning The records that you are about to access may contain information from federally-assisted alcohol or drug abuse programs. If such information is present, then the following federally mandated warning applies: This information has been disclosed to you from records protected by federal confidentiality rules (42 CFR part 2). The federal rules prohibit you from making any further disclosure of this information unless further disclosure is expressly permitted by the written consent of the person to whom it pertains or as otherwise permitted by 42 CFR part 2. A general authorization for the release of medical or other information is NOT sufficient for this purpose. The Federal rules restrict any use of the information to criminally investigate or prosecute any alcohol or drug abuse patient.The records that you are about to access may contain highly sensitive health information, the redisclosure of which is protected by Article 27-F of the [facility] Public Health law. If you continue you may have access to information: Regarding HIV / AIDS; Provided by facilities licensed or operated by the [facility] Office of Mental Health; or Provided by the [facility] Office for People With Developmental Disabilities. If such information is present, then the following [facility] mandated warning applies: This information has been disclosed to you from confidential records which are protected by state law. State law prohibits you from making any further disclosure of this information without the specific written consent of the person to whom it pertains, or as otherwise permitted by law. Any unauthorized further disclosure in violation of state law may result in a fine or mcc sentence or both. A general authorization for the release of medical or other information is NOT sufficient authorization for further disc losure. Medications Medication Brand Name Start Date Product Form Dose Route Admi nistrative Instructions Pharmacy Instructions Status Indications Reaction Description Data Source(s) 2 mg 06/13/2020 12:00:00 AM EST tablet, sublingual 12 PLACE ONE AND ONE-HALF TABLETS UNDER THE TONGUE TWICE A DAY MAX DAILY DOSE = [address] ONE AND ONE-HALF TABLETS UNDER THE TONGUE TWICE A DAY MAX DAILY DOSE = 3 TABLETS SOLD: 06/13/2020 [facility] 2 mg 05/21/2020 12:00:00 AM EST tablet, sublingual 90 PLACE 1 & 1/2 TABLETS UNDER THE TONGUE TWO TIMES A DAY MAX DAILY DOSE = [address] 1 & 1/2 TABLETS UNDER THE TONGUE TWO TIMES A DAY MAX DAILY DOSE = 3 TABLETS SOLD: 05/22/2020 [facility] 24 HR Guanfacine 1 MG Extended Release Oral Tablet GUANFACIN E HCL 05/08/2020 12:00:00 AM EST tablet extended release 24 hr 30 TA KE ONE TABLET BY MOUTH EVERY MORNING TAKE ONE TABLET BY MOUTH EVERY MORNING SOLD: 05/09/2020 [facility] 2 mg 04/22/2020 12:00:00 AM EST tablet, sublingual 21 PLACE 1&1/2TAB.UNDER TONGUE TWICE A DAY MAXIMUM DAILY DOSE = [address] 1&1/2TAB.UNDER TONGUE TWICE A DAY MAXIMUM DAILY DOSE = 3 TABLETS SOLD: 05/09/2020 [facility] 24 HR Guanfacine 1 MG Extended Release Oral Tablet GUANFACIN E HCL 04/10/2020 12:00:00 AM EST tablet extended release 24 hr 30 TA KE ONE TABLET BY MOUTH EVERY MORNING TAKE ONE TABLET BY MOUTH EVERY MORNING SOLD: 04/14/2020 [facility] 2 mg 03/11/2020 12:00:00 AM EDT tablet, sublingual 90 PLACE ONE AND ONE-HALF TABLETS UNDER THE TONGUE TWICE A DAY MAX 3TABS/DAY PLACE ONE AND ONE-HALF TABLETS UNDER THE TONGUE TWICE A DAY MAX 3TABS/DAY SOLD: 03/24/2020 [facility] 2 mg 02/28/2020 12:00:00 AM EDT tablet, sublingual 42 PLACE 1 & 1/2 TABLETS UNDER TONGUE TWO TIMES A DAY MAX = 3 TABLETS/DAY PLACE 1 & 1/2 TABLETS UNDER TONGUE TWO TIMES A DAY MAX = 3 TABLETS/DAY SOLD: 02/28/2020 [facility] Insurance Providers Payer name Policy type / Coverage type Policy ID Covered democrat ID Covered democrat's relationship to gonzalez Policy Gonzalez Plan Information [facility] COMMUNITY PLAN [facility] [id number] SP [id number] Managed Care [facility] Community Plan P [id number] S [id number] Managed Care - Community Plan [facility] P [id number] S [id number] UNHC COMMUNITY PLAN MCDHMO [id number] SP [id number] Managed Care - [facility] Community Plan P [id number] S [id number] Medicaid S [id number] S [id number] Managed Care - Community Plan [facility] P [id number] S [id number] UNHC COMMUNITY PLAN MCDHMO [id number] SP [id number] SELF PAY ONLY [id number] SP [id number] UNHC COMMUNITY PLAN MCDO [id number] SP [id number] MEDICAID M [id number] S [id number] [facility]) O [id number] S [id number] SELF PAY ONLY [id number] SP [id number] SELF PAY ONLY UNAVAILABLE UNAV AILABLE UN COMMUNITY PLAN MCDO [id number] SP [id number] SELF PAY ONLY [id number] SP [id number] UNAVAILABLE UNAVAILA BLE SELF PAY UNAVAILABLE SP UNAVAILA BLE [facility] Community Plan Commercial [id number] Self UNHC COMMUNITY PLAN [facility] [id number] SP [id number] MEDICAID [id number] SP [id number] [facility] [id number] SP [id number] BLUE CROSS [place] PLAN [id number] SP [id number] BCBS [place] [id number] FA [id number] [facility] BLUE [id number] SP [id number] UN COMMUNITY PLAN [facility] [id number] SP [id number] [facility] [id number] SP [id number] Medicaid S [id number] S [id number] [facility]) O [id number] S [id number] MEDICAID [id number] SP [id number] Problems, Conditions, and Diagnoses No Information Surgeries/Procedures No Information Results No Information Social History No Information
--- NOTE | 2021-04-28 09:28 | REP ---
INDICATION: pain, injury, numbness COMPARISON: None. TECHNIQUE: AP, lateral, bilateral oblique views of the left knee. FINDINGS: Lateral view demonstrates significant anterior soft tissue swelling. No evidence for acute fracture or dislocation. No obvious effusion. No subcutaneous emphysema or foreign body. IMPRESSION: Anterior soft tissue swelling. Findings suggest prepatellar bursitis. <Electronically signed by Elia Roe > 04/28/21 0961
--- OUTSIDE RECORDS SUMMARY | 2021-04-28 13:17 | CCD ---
Author Author [facility] Organization [facility] Address Unknown Phone Unavailable Support Name Relationship Address Phone SELF Next Of Kin Unknown Unavailable Jarred Umaña Next Of Kin Unknown Unavailable Bettye Vicente Next Of Kin [address] [place] [address] SELF EMPLOYED Next Of Kin [address] [place] [address] JARRED UMAÑA Next Of Kin [address] [place] [address] MARIZA UMAÑA Next Of Kin ? [place] [address] [place] [employer] Next Of Kin [address] [place] [address] ARMIN UMAÑA Next Of Kin ? [place] [address] N G [employer]ERTY MANAGEMENT Next Of Kin [address] [place] [address] NNG [employer]ERTY [employer]NAG[employer] Next Of Kin [address] [place] [address] N[place] [employer]ERTY MANAGEMENT [place] [address] Unavailable CHELSEY FONTANEZ Next Of Kin [address] [place] [address] BHUMIKA MENDIETA Next Of Kin [address] [place] [address] JERMAN EDGAR Next Of Kin [address] [facility] [address] [place] [address] WARNER THORPE Next Of Kin [address] [place] [address] ST Next Of Kin Unknown Unavailable LOU ALBARADO Next Of Kin [address] [facility] [address] [place] [address] JARRED ALBARADO Next Of Kin [address] [facility] [address] [place] [address] ANALY ECHAVARRIA Next Of Kin [address] [place] [address] UE Next Of Kin Unknown Unavailable [place]EMPLOYED [place] [address] UN Next Of Kin Unknown Unavailable JARRED MOORE Next Of Kin [address] [place] [address] Re-disclosure Warning The records that you are [...] is protected by Article 27-F of the [facility] Public Health law. If you continue you may have access to information: Regarding HIV / AIDS; Provided by facilities licensed or operated by the [facility] Office of Mental Health; or Provided by the [facility] Office for People With Developmental Disabilities. If such information is present, then the following [facility] mandated warning applies: This information has been [...] law may result in a fine or residential sentence or both. A general authorization for [...] type / Coverage type Policy ID Covered constitution party ID Covered constitution party's relationship to gonzalez Policy Gonzalez Plan Information [facility] [id number] SP [id number] Managed Care [facility] Community Plan P [id number] S [id number] Managed Care - Community Plan [facility] P [id number] S [id number] UNHC COMMUNITY PLAN MCDHMO [id number] SP [id number] Managed Care - [facility] Community Plan P [id number] S [id number] Medicaid S [id number] S [id number] Managed Care - Community Plan [facility] P [id number] S [id number] UNHC COMMUNITY PLAN MCDHMO [id number] SP [id number] SELF PAY ONLY [id number] SP [id number] UNHC COMMUNITY PLAN MCDHMO [id number] SP [id number] MEDICAID M [id number] S [id number] [facility]) O [id number] S [id number] SELF PAY ONLY [id number] SP [id number] SELF PAY ONLY UNAVAILABLE UNAV AILABLE UN COMMUNITY PLAN MCDO [id number] SP [id number] SELF PAY ONLY [id number] SP [id number] UNAVAILABLE UNAVAILA BLE SELF PAY UNAVAILABLE SP UNAVAILA BLE [facility] Community Plan Commercial [id number] Self UNHC COMMUNITY PLAN MCDO [id number] SP [id number] MEDICAID [id number] SP [id number] [facility] [id number] SP [id number] BLUE CROSS S[place]ZA PLAN [id number] SP [id number] BCBS [place] [id number] FA [id number] [facility] BLUE [id number] SP [id number] UNHC COMMUNITY PLAN MCDO [id number] SP [id number] [facility] [id number] SP [id number] Medicaid S [id number] S [id number] [facility]) O [id number] S [id number] MEDICAID [id number] SP [id number] Problems, Conditions, and Diagnoses No Information Surgeries/Procedures No Information Results No Information Social History No Information
[2021-04-28] MEDS ORDERED: NS 1,000 ML IV ONE (13:20)
[2021-04-28] MEDS ORDERED: KETOROLAC 30 MG/ML 1ML VIAL IV ONE (13:20)
[2021-04-28 14:03] LABS: BASO % 0.4 % (0.0-1.0); EOS % 0.5 % (0.0-3.0); HEMATOCRIT 40.6 % (42.0-52.0); HEMOGLOBIN 13.7 g/dl (13.5-17.5); LYMPH # 1.6 10^3/uL (1.5-5.0); LYMPH % 18.4 % (24.0-44.0); MEAN CORPUSCULAR HEMOGLOBIN 30.4 pg (27.0-33.0); MEAN CORPUSCULAR HGB CONC 33.7 g/dl (32.0-36.5); MEAN CORPUSCULAR VOLUME 90.2 fl (80.0-96.0); MONO # 0.6 10^3/uL (0.0-0.8); NEUTROPHILS # 6.2 10^3/uL (1.5-8.5); NEUTROPHILS % 73.3 % (36.0-66.0); PLATELET COUNT, AUTOMATED 260 10^3/uL (150-450); WHITE BLOOD COUNT 8.5 10^3/uL (4.0-10.0)
[2021-04-28 14:24] LABS: ERYTHROCYTE SEDIMENTATION RATE 7 mm/hr (0-15)
[2021-04-28 14:45] LABS: ALBUMIN 3.6 GM/DL (3.2-5.2); BILIRUBIN,DIRECT 0.2 MG/DL (0.0-0.2); BILIRUBIN,TOTAL 0.9 MG/DL (0.2-1.0); C REACTIVE PROTEIN QUANTITATIV 2.6 MG/DL (0.00-0.30); TOTAL PROTEIN 6.5 GM/DL (6.4-8.2)
[2021-04-28] MEDS ORDERED: DOXY-443 PO ×2 (15:23→16:40)
[2021-04-28 15:45] VITALS: BP 122/78
--- NOTE | 2021-04-28 17:40 | CR ---
CONSULTATION DATE: 04/28/2021 CHIEF COMPLAINT: Left knee swelling. HISTORY OF PRESENT ILLNESS: I was called to assess the patient this afternoon by Jen Zhong PA-C the QMP at [facility] ED on 04/28/2021 at approximately 3 p.m. According to the provider, the patient had a three day history of increasing redness and swelling to his knee. Atraumatic. 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 There are no fevers but he does have sweats and chills. It is hard for him to bend. PAST MEDICAL HISTORY: Per the QMP, negative. SOCIAL HISTORY: The patient apparently denies intravenous drug use. PHYSICAL EXAMINATION: The vital signs are temperature 98.6, pulse rate 89, blood pressure 147/63, 99% on room air. Per the QMP, the knee is warm, swollen especially anteriorly and red, no active drainage. Difficult to bend. LABORATORY EXAMINATION: Reveals the white blood cell count 8.5, neutrophil percentage 73, ESR of 7. CRP is 2.6. COVID test not performed. IMAGING: The x-rays of the knee on the left side, lateral view demonstrates significant anterior soft tissue swelling, no evidence for acute fracture dislocation, no obvious fusion. ASSESSMENT AND PLAN: A 35-year-old man appears to have per the history and physical examination as well as imaging findings given to me by the QMP, an acute septic prepatellar bursitis. Direct intravenous antibiotics with MRSA coverage, admission under the hospitalist service, monitoring the inflammatory markers and I will see the patient within an appropriate 24 hour period to discuss potential knee aspiration in order to guide antibiotic management that can be both diagnostic and therapeutic. The QMP, Jen Zhong PA-C was in agreement with the plan, understood and had no further questions and she will call the hospitalist to assess the patient as well. ADDENDUM - 04/29/21 the patient left AMA MTDD
== END 2021-04-28 15:49 | disposition left against medical advice (07) ==
LOC: M ED 08:51
DX: M70.52 Other bursitis of knee, left knee (principal); Z53.9 Procedure and treatment not carried out, unspecified reason; F17.200 Nicotine dependence, unspecified, uncomplicated; F12.10 Cannabis abuse, uncomplicated; Z88.2 Allergy status to sulfonamides
CPT/HCPCS: 73564; 80047; 80076; 83605; 84550; 85025; 85652; 86140; 87040; 87077; 96361; 96374; 99284; J1885

== ENCOUNTER 2024-05-31 22:09 | Emergency (ER) | payer OTHER ==
[~2024-05-31] VITALS: Ht 172.7 cm; Wt 59.1 kg
[~2024-05-31 22:09] MED LIST changes: +DOXY-441 PO; -DOXY-443 PO; +ONDA-282 PO; -ONDA4TAB6 PO
[2024-05-31] MEDS ORDERED: SUBO4MIS SL (22:24)
[2024-05-31 22:26] VITALS: TEMP 96.6
[2024-05-31 23:11] LABS: HEMATOCRIT 40.5 % (42.0-52.0); HEMOGLOBIN 13.9 g/dl (13.5-17.5); MEAN CORPUSCULAR HEMOGLOBIN 32.3 pg (27.0-33.0); MEAN CORPUSCULAR HGB CONC 34.3 g/dl (32.0-36.5); PLATELET COUNT, AUTOMATED 208 10^3/uL (150-450); RED BLOOD COUNT 4.31 10^6/uL (4.30-6.10); WHITE BLOOD COUNT 5.3 10^3/uL (4.0-10.0)
[2024-05-31 23:30] LABS: ETHYL ALCOHOL (ETHANOL) 0.238 % (0.000-0.010)
[2024-05-31 23:32] LABS: BLOOD UREA NITROGEN 15 MG/DL (9-23); CALCIUM LEVEL 8.7 MG/DL (8.5-10.1); CARBON DIOXIDE LEVEL 30 MMOL/L (20-31); CHLORIDE LEVEL 105 MMOL/L (98-107); CREATININE FOR GFR 0.72 MG/DL (0.70-1.30); GLOMERULAR FILTRATION RATE > 60.0 (>60); GLUCOSE, FASTING 112 MG/DL (60-100); POTASSIUM SERUM 3.7 MMOL/L (3.5-5.1); SODIUM LEVEL 141 MMOL/L (136-145)
[2024-06-01 01:15] VITALS: BP 116/72; O2SAT 100
== END 2024-06-01 01:29 | disposition home or self-care (01) ==
LOC: EDBD 22:09 → M ED 22:09
DX: F10.129 Alcohol abuse with intoxication, unspecified (principal); F17.200 Nicotine dependence, unspecified, uncomplicated; Z88.2 Allergy status to sulfonamides

== ENCOUNTER 2024-09-09 01:14 | Emergency (ER) | payer OTHER ==
[~2024-09-09 01:14] MED LIST changes: +SUBO4MIS SL
[2024-09-09] MEDS: ONDANSETRON 4MG 2ML VIAL IV ONE (01:50)
[2024-09-09] MEDS ORDERED: ACAM0.05 PO (02:06)
[2024-09-09 02:09] LABS: BASO # 0.1 10^3/uL (0.0-0.2); BASO % 1.1 % (0.0-1.0); EOS # 0.1 10^3/uL (0.0-0.5); EOS % 1.8 % (0.0-3.0); HEMATOCRIT 43.4 % (42.0-52.0); HEMOGLOBIN 14.7 g/dl (13.5-17.5); LYMPH # 1.4 10^3/uL (1.5-5.0); LYMPH % 32.3 % (24.0-44.0); MEAN CORPUSCULAR HEMOGLOBIN 32.5 pg (27.0-33.0); MEAN CORPUSCULAR HGB CONC 33.9 g/dl (32.0-36.5); MEAN CORPUSCULAR VOLUME 95.8 fl (80.0-96.0); MONO # 0.4 10^3/uL (0.0-0.8); MONO % 8.1 % (2.0-8.0); NEUTROPHILS # 2.5 10^3/uL (1.5-8.5); NEUTROPHILS % 56.5 % (36.0-66.0); PLATELET COUNT, AUTOMATED 240 10^3/uL (150-450); RED BLOOD COUNT 4.53 10^6/uL (4.30-6.10); WHITE BLOOD COUNT 4.5 10^3/uL (4.0-10.0)
[2024-09-09 02:21] LABS: INR 0.91; PARTIAL THROMBOPLASTIN TIME 26.8 SECONDS (24.8-34.2); PROTHROMBIN TIME 12.6 SECONDS (12.5-14.5)
[2024-09-09 02:26] LABS: AMPHETAMINES LEVEL URINE NEGATIVE (NEGATIVE)
[2024-09-09 02:27] LABS: BARBITURATES URINE NEGATIVE (NEGATIVE); BENZODIAZEPINES URINE NEGATIVE (NEGATIVE); CANNABINOIDS URINE NEGATIVE (NEGATIVE); COCAINE METABOLITE URINE NEGATIVE (NEGATIVE); LIPASE 30 U/L (12-53); METHADONE URINE NEGATIVE (NEGATIVE); OPIATES URINE NEGATIVE (NEGATIVE); PHENCYCLIDINE URINE NEGATIVE (NEGATIVE)
[2024-09-09 02:29] LABS: ALBUMIN 4.1 G/DL (3.2-5.2); ALKALINE PHOSPHATASE 65 U/L (40-129); ALT/SGPT 22 U/L (7.0-40); AMYLASE 64 U/L (30-118); AST/SGOT 18 U/L (<34); BILIRUBIN,DIRECT 0.1 MG/DL (<0.4); BILIRUBIN,TOTAL 0.4 MG/DL (0.3-1.2); BLOOD UREA NITROGEN 13 MG/DL (9-23); CARBON DIOXIDE LEVEL 27 MMOL/L (20-31); CHLORIDE LEVEL 105 MMOL/L (98-107); CREATININE FOR GFR 0.82 MG/DL (0.70-1.30); GLOMERULAR FILTRATION RATE > 90.0 (>60); GLUCOSE, FASTING 107 MG/DL (60-100); POTASSIUM SERUM 3.8 MMOL/L (3.5-5.1); SODIUM LEVEL 143 MMOL/L (136-145); TOTAL PROTEIN 6.7 G/DL (5.7-8.2)
[2024-09-09 02:52] LABS: ETHYL ALCOHOL (ETHANOL) 0.325 % (0.000-0.010)
[2024-09-09 08:46] VITALS: BP 133/79; TEMP 96.7; O2SAT 96
== END 2024-09-09 09:09 | disposition home or self-care (01) ==
LOC: M ED 01:14 → EDBD 01:14 → M ED 09:09
DX: S09.90XA Unspecified injury of head, initial encounter (principal); F10.129 Alcohol abuse with intoxication, unspecified; W08.XXXA Fall from other furniture, initial encounter; Y92.59 Other trade areas as the place of occurrence of the external cause; Y93.9 Activity, unspecified; Y99.9 Unspecified external cause status; Z79.899 Other long term (current) drug therapy; Z88.2 Allergy status to sulfonamides
CPT/HCPCS: 70450; 70486; 71045; 72125; 72128; 72131; 80048; 80076; 80307; 82077; 82150; 83605; 83690; 85025; 85610; 85730; 86850; 86900; 86901; 93041; 94760; 96374; 99285; J2405

== ENCOUNTER 2025-01-06 23:42 | Emergency (ER) | payer OTHER ==
[~2025-01-06] VITALS: Ht 170.2 cm; Wt 60.9 kg
[~2025-01-06 23:42] MED LIST changes: +ACAM0.05 PO
[2025-01-07] MEDS ORDERED: ISOVUE-370 76% 100 ML VIAL As Ordered ONE (00:09)
[2025-01-07 00:11] LABS: VENOUS BASE EXCESS 0.4 (-2.0-2.0); VENOUS HCO3 26.1 MMOL/L (23.0-27.0); VENOUS O2 SATURATION 90.3 % (60.0-80.0); VENOUS PARTIAL PRESSURE CO2 45.9 mmHg (38.0-50.0); VENOUS PARTIAL PRESSURE O2 62.4 mmHg (30.0-50.0); VENOUS PH 7.373 UNITS (7.330-7.430); VENOUS STANDARD HCO3 24.7 MMOL/L; VENOUS TOTAL CO2 27.5 MMOL/L (24.0-28.0)
[2025-01-07 00:15] LABS: BASO # 0.0 10^3/uL (0.0-0.2); BASO % 0.6 % (0.0-1.0); EOS # 0.1 10^3/uL (0.0-0.5); EOS % 2.0 % (0.0-3.0); LYMPH # 2.1 10^3/uL (1.5-5.0); LYMPH % 42.8 % (24.0-44.0); MONO # 0.3 10^3/uL (0.0-0.8); MONO % 5.9 % (2.0-8.0); NEUTROPHILS # 2.4 10^3/uL (1.5-8.5); NEUTROPHILS % 48.3 % (36.0-66.0); PLATELET COUNT, AUTOMATED 224 10^3/uL (150-450)
[2025-01-07 00:37] LABS: INR 0.99
[2025-01-07 00:39] LABS: ETHYL ALCOHOL (ETHANOL) 0.208 % (0.000-0.010)
[2025-01-07 00:40] LABS: CPK CREATINE PHOSPHOKINASE 280 U/L (46-171)
[2025-01-07 00:41] LABS: ALT/SGPT 24 U/L (7.0-40); AST/SGOT 26 U/L (<34); CALCIUM LEVEL 8.7 MG/DL (8.5-10.1); CARBON DIOXIDE LEVEL 29 MMOL/L (20-31); CHLORIDE LEVEL 106 MMOL/L (98-107); CK-MB VALUE MASS 3.2 NG/ML (<3.6); CREATININE FOR GFR 0.81 MG/DL (0.70-1.30); GLOMERULAR FILTRATION RATE > 90.0 (>60); MB/CK RELATIVE INDEX 1.14 (< OR =4); POTASSIUM SERUM 3.6 MMOL/L (3.5-5.1); SODIUM LEVEL 147 MMOL/L (136-145)
[2025-01-07 04:00] VITALS: TEMP 97.2
[2025-01-07 07:15] VITALS: BP 129/81; O2SAT 97
[2025-01-07 07:19] LABS: AMPHETAMINES LEVEL URINE NEGATIVE (NEGATIVE); BARBITURATES URINE NEGATIVE (NEGATIVE); BENZODIAZEPINES URINE NEGATIVE (NEGATIVE); COCAINE METABOLITE URINE NEGATIVE (NEGATIVE); METHADONE URINE NEGATIVE (NEGATIVE); OPIATES URINE NEGATIVE (NEGATIVE); PHENCYCLIDINE URINE NEGATIVE (NEGATIVE)
[2025-01-07 07:36] LABS: CANNABINOIDS URINE POSITIVE (NEGATIVE)
[2025-01-07 07:39] LABS: APPEARANCE, URINE CLEAR (CLEAR)
[2025-01-07 07:40] LABS: BILIRUBIN, URINE AUTO NEGATIVE (NEGATIVE); GLUCOSE, URINE (UA) AUTO NEGATIVE (NEGATIVE); KETONE, URINE AUTO NEGATIVE (NEGATIVE); PROTEIN, URINE AUTO TRACE mg/dL (NEGATIVE); SPECIFIC GRAVITY URINE AUTO 1.010 (1.002-1.035); UROBILINOGEN, URINE AUTO 0.2 mg/dL (0.0-2.0)
[2025-01-07 07:41] LABS: BACTERIA, URINE AUTO NEGATIVE (NEGATIVE); BLOOD, URINE BLOOD NEGATIVE (NEGATIVE); LEUKOCYTE ESTERASE, URINE AUTO NEGATIVE (NEGATIVE); NITRITE, URINE AUTO NEGATIVE (NEGATIVE); SQUAMOUS EPITHELIAL CELL UR AU NEGATIVE /HPF (0-6); WBC, URINE AUTO 0-3 /HPF (0-3)
[2025-01-07 07:42] LABS: RBC, URINE AUTO NONE SEEN /HPF (0-3)
[2025-01-07] MEDS ORDERED: TETANUS/DIPHTH/ACEL. PERTUSSIS 0.5 ML SYR IM.IMMUN ONE (08:20)
== END 2025-01-07 08:57 | disposition home or self-care (01) ==
LOC: M ED 23:42
DX: S06.0X0A Concussion without loss of consciousness, initial encounter (principal); S40.011A Contusion of right shoulder, initial encounter; S40.012A Contusion of left shoulder, initial encounter; S20.213A Contusion of bilateral front wall of thorax, initial encounter; F12.10 Cannabis abuse, uncomplicated; Y04.8XXA Assault by other bodily force, initial encounter; Y92.830 Public park as the place of occurrence of the external cause; Y93.9 Activity, unspecified; Y99.9 Unspecified external cause status; Z79.899 Other long term (current) drug therapy; Z88.2 Allergy status to sulfonamides
CPT/HCPCS: 70450; 70486; 71045; 71260; 72125; 74177; 80047; 80048; 80076; 80307; 81001; 82077; 82150; 82550; 82553; 82803; 83605; 83690; 84484; 85025; 85610; 85730; 86850; 86900; 86901; 93005; 94760; 99285; Q9967

== ENCOUNTER 2025-04-15 20:42 | Emergency (ER) | payer OTHER ==
[~2025-04-15] VITALS: Ht 160 cm; Wt 60.9 kg
[~2025-04-15 20:42] MED LIST changes: -IBUP1TAB6 PO; +SFHIBU600 PO
[2025-04-15 20:51] VITALS: BP 135/85; TEMP 98.2; O2SAT 99
== END 2025-04-15 21:45 | disposition left against medical advice (07) ==
LOC: M ED 20:42
DX: Z53.21 Procedure and treatment not carried out due to patient leaving prior to being seen by health care provider (principal)